=== PATIENT | female | born 1940 | race Caucasian/White ===

== ENCOUNTER → 2019-10-23 | Outpatient (CLI) | payer OTHER ==
[~2019-10-23] MED LIST: ADVAIR; ALBU90OI61 INH; AMLO10 PO; ASPI81CH PO; ASPIRIN; AZIT500 PO; CLIN150 PO; CLON.1 PO; CYAN1000 PO; CYCL10 PO; CYCLOBENZAPRINE; Cyclobenzaprine5 MG PO; DIPH12.5EL PO; DIPH50 PO; DOXY100 PO; DULO30 PO; ESCI10 PO; EVISTA; FISH1000; FLUSAL1005 INH; FLUSAL2505; GABA300 PO; GLUC500; HYDACE5325; HYDCHL25 PO; K-Dur10 MEQ; LEVSOD50 PO; LEXAPRO; LIPOZENE; LISI20 PO; LISINOPRIL; LORA10 PO; MELA3 PO; MELATONIN; MELO7.5; MELO7.5 PO; MELOXICAM; OMEG1CAP30; OMEGA 3; ONDA4ODT MM; OXYACE7.5T PO; OXYB5 PO; OXYC10TA19 PO; PRED10 PO; PRED20 PO; RALO60 PO; RANI150 PO; RANITIDINE; SERT100; SUPER B; TIOT18; TIOT18 IH; VENTOLIN; VITB100; Ventolin Soln3 ML INH
[2019-10-24 16:41] LABS: BASOPHILS ABSOLUTE AUTO 0.11 K/mm3 (0.00-0.23); BASOPHILS PERCENT AUTO 1 % (0-2); EOSINOPHILS ABSOLUTE AUTO 0.36 K/mm3 (0.00-0.68); EOSINOPHILS PERCENT AUTO 4 % (0-6); Hematocrit 47.7 % (33.0-51.0); IMMATURE GRAN ABSOLUTE AUTO 0.02 K/mm3 (0.00-0.10); IMMATURE GRAN PERCENT AUTO 0 % (0-1); LYMPHOCYTES ABSOLUTE AUTO 3.26 K/mm3 (0.84-5.20); LYMPHOCYTES PERCENT AUTO 35 % (21-46); MONOCYTES PERCENT AUTO 9 % (4-13); Mean Corpuscular HGB 30.4 pg (26.0-34.0); Mean Corpuscular HGB Conc 29.4 g/dL (31.5-36.5); Mean Corpuscular Volume 104 fL (80-100); Mean Platelet Volume 11.5 fL (9.1-12.4); NEUTROPHILS ABSOLUTE AUTO 4.82 K/mm3 (1.96-9.15); NEUTROPHILS PERCENT AUTO 52 % (41-73); Platelet Count 313 K/mm3 (150-400); RDW Coefficient Variation 14.7 % (11.7-14.2); RDW Standard Deviation 57.4 fL (35.1-46.3); White Blood Cell Count 9.37 K/mm3 (4.00-11.30)
== END | disposition home or self-care (01) ==
LOC: LAB SHORT 15:19 → LAB 15:19 → LAB SHORT 10-24 15:19
PROVIDERS: Nurse Practitioner Family
DX: E03.9 Hypothyroidism, unspecified (principal); I10 Essential (primary) hypertension
CPT/HCPCS: 84443; 85025

== ENCOUNTER 2020-08-08 22:49 | Inpatient (IN) | payer OTHER ==
[~2020-08-08] VITALS: Ht 154.9 cm; Wt 75.7 kg
[~2020-08-08 22:49] MED LIST changes: -ALBU90OI61 INH; -CLON.1 PO; -DULO30 PO; -GABA300 PO; -K-Dur10 MEQ; -LEVSOD50 PO; -MELO7.5 PO; -OXYACE7.5T PO; -RALO60 PO
[2020-08-08 23:34] LABS: BASOPHILS ABSOLUTE AUTO 0.07 K/mm3 (0.00-0.23); BASOPHILS PERCENT AUTO 0 % (0-2); EOSINOPHILS ABSOLUTE AUTO 0.27 K/mm3 (0.00-0.68); EOSINOPHILS PERCENT AUTO 2 % (0-6); Hematocrit 37.6 % (33.0-51.0); Hemoglobin 12.1 g/dL (11.5-16.0); IMMATURE GRAN ABSOLUTE AUTO 0.12 K/mm3 (0.00-0.10); IMMATURE GRAN PERCENT AUTO 1 % (0-1); LYMPHOCYTES ABSOLUTE AUTO 2.13 K/mm3 (0.84-5.20); LYMPHOCYTES PERCENT AUTO 12 % (21-46); MONOCYTES ABSOLUTE AUTO 1.68 K/mm3 (0.16-1.47); MONOCYTES PERCENT AUTO 10 % (4-13); Mean Corpuscular HGB 29.8 pg (26.0-34.0); Mean Corpuscular HGB Conc 32.2 g/dL (31.5-36.5); Mean Corpuscular Volume 93 fL (80-100); Mean Platelet Volume 10.8 fL (9.1-12.4); NEUTROPHILS ABSOLUTE AUTO 13.32 K/mm3 (1.96-9.15); NEUTROPHILS PERCENT AUTO 76 % (41-73); Platelet Count 295 K/mm3 (150-400); RDW Standard Deviation 47.9 fL (35.1-46.3); Red Blood Cell Count 4.06 M/mm3 (3.80-5.20); White Blood Cell Count 17.59 K/mm3 (4.00-11.30)
[2020-08-08 23:54] LABS: Albumin, Blood 2.7 g/dL (3.4-5.0); Albumin/Globulin Ratio 0.6 (0.8-1.8); Bilirubin, Total 0.6 mg/dL (0.1-1.0); Bun/Creatinine Ratio 13.3 (12.0-20.0); Creatinine, Blood 1.2 mg/dL (0.40-1.00); Globulin, Blood 4.8 g/dL (2.2-4.0); Potassium, Blood 3.7 mmol/L (3.5-5.5); Total Protein, Blood 7.5 g/dL (6.4-8.2); Troponin I 0.321 ng/mL (0.000-0.040)
[2020-08-09 11:11] LABS: BASOPHILS ABSOLUTE AUTO 0.04 K/mm3 (0.00-0.23); BASOPHILS PERCENT AUTO 0 % (0-2); EOSINOPHILS PERCENT AUTO 0 % (0-6); Hematocrit 38.3 % (33.0-51.0); Hemoglobin 12.5 g/dL (11.5-16.0); IMMATURE GRAN ABSOLUTE AUTO 0.14 K/mm3 (0.00-0.10); IMMATURE GRAN PERCENT AUTO 1 % (0-1); LYMPHOCYTES ABSOLUTE AUTO 0.81 K/mm3 (0.84-5.20); LYMPHOCYTES PERCENT AUTO 5 % (21-46); MONOCYTES ABSOLUTE AUTO 0.25 K/mm3 (0.16-1.47); MONOCYTES PERCENT AUTO 2 % (4-13); Mean Corpuscular HGB 29.7 pg (26.0-34.0); Mean Corpuscular HGB Conc 32.6 g/dL (31.5-36.5); Mean Corpuscular Volume 91 fL (80-100); Mean Platelet Volume 11.2 fL (9.1-12.4); NEUTROPHILS PERCENT AUTO 92 % (41-73); Platelet Count 331 K/mm3 (150-400); RDW Coefficient Variation 14.1 % (11.7-14.2); RDW Standard Deviation 47.2 fL (35.1-46.3); Red Blood Cell Count 4.21 M/mm3 (3.80-5.20); White Blood Cell Count 15.34 K/mm3 (4.00-11.30)
[2020-08-09 11:42] LABS: Albumin, Blood 2.8 g/dL (3.4-5.0); Albumin/Globulin Ratio 0.5 (0.8-1.8); Bilirubin, Total 0.4 mg/dL (0.1-1.0); Bun/Creatinine Ratio 14.5 (12.0-20.0); Creatinine, Blood 1.17 mg/dL (0.40-1.00); Globulin, Blood 5.2 g/dL (2.2-4.0)
[2020-08-09] MEDS ORDERED: ZANTAC-360 (FAM20 MG PO (14:13)
[2020-08-09] MEDS ORDERED: Percocet 10-321 EACH PO (14:13)
[2020-08-09] MEDS ORDERED: EUTHYROX50 MCG PO (14:14)
[2020-08-09] MEDS ORDERED: MONT10T PO (14:15)
[2020-08-09] MEDS ORDERED: DULOXETINE HCL40 MG PO (14:16)
[2020-08-09] MEDS ORDERED: K-Dur10 MEQ PO (14:16)
[2020-08-09] MEDS ORDERED: GABA300 PO (14:17)
[2020-08-09] MEDS ORDERED: CLON.1 PO (14:18)
[2020-08-09] MEDS ORDERED: RALO60 PO (14:18)
[2020-08-09] MEDS ORDERED: MELO7.5 PO (14:18)
[2020-08-09] MEDS ORDERED: ALBU90OI61 INH (14:19)
[2020-08-09] MEDS ORDERED: Aspir 8181 MG PO (15:52)
[2020-08-10 04:50] LABS: BASOPHILS ABSOLUTE AUTO 0.05 K/mm3 (0.00-0.23); BASOPHILS PERCENT AUTO 0 % (0-2); EOSINOPHILS PERCENT AUTO 0 % (0-6); Hematocrit 37.5 % (33.0-51.0); Hemoglobin 12.2 g/dL (11.5-16.0); IMMATURE GRAN ABSOLUTE AUTO 0.26 K/mm3 (0.00-0.10); IMMATURE GRAN PERCENT AUTO 1 % (0-1); LYMPHOCYTES ABSOLUTE AUTO 1.41 K/mm3 (0.84-5.20); LYMPHOCYTES PERCENT AUTO 7 % (21-46); MONOCYTES PERCENT AUTO 5 % (4-13); Mean Corpuscular HGB Conc 32.5 g/dL (31.5-36.5); Mean Corpuscular Volume 92 fL (80-100); Mean Platelet Volume 10.8 fL (9.1-12.4); NEUTROPHILS ABSOLUTE AUTO 17.41 K/mm3 (1.96-9.15); NEUTROPHILS PERCENT AUTO 86 % (41-73); Platelet Count 363 K/mm3 (150-400); RDW Coefficient Variation 14.1 % (11.7-14.2); RDW Standard Deviation 47.9 fL (35.1-46.3); Red Blood Cell Count 4.06 M/mm3 (3.80-5.20); White Blood Cell Count 20.23 K/mm3 (4.00-11.30)
[2020-08-10 04:55] LABS: Base Excess Venous 6.7 mmol/L; Bicarbonate Venous 29.6 mmol/L (24.0-30.0); PCO2 Venous 45.6 mmHg (38-42); PO2 Venous 79.7 mmHg (38-42); pH Blood Venous 7.44 (7.34-7.37)
--- NOTE | 2020-08-10 04:56 | NUR ---
SUMMARY: PT A/OX4, INDEPENDENT IN ROOM AND CALLS APPROPRIATELY FOR ASSIST. SHE BEGAN SHIFT ANXIOUS R/T CHRONIC BACK PAIN AND C/O PERSISTANT UPSET STOMACH AFTER RECIEVING ZOFRAN ON DAY SHIFT. STEPHANIE WAS ALERTED W/HOME MEDS RX'D. OXYCODONE AND FAMOTIDINE RECIEVED PRN FOR GOOD EFFECT. SHE REMAINS ON 1L O2 VIA NC W/WHEEZES HEARD UPON AUSCULTATION AND BX TX'S PROVIDED PER RT. PT USES FLUTTER WA W/MOIST HACKING PRODUCTIVE COUGH OBSERVED AND SPUTUM SPECIMEN OBTAINED/SENT. MILD SOB NOTED UPON EXERTION BUT PT RECOVERS AT REST. ABX AND IV STEROIDS BEING RECIEVED FOR TX OF PNM. SHE REMAINS NSR W/PAC'S AND PVC'S, HR 90'S. NO ACUTE CHANGES, VSS/AFEBRILE. WCTM AND REPORT TO DAY RN.
[2020-08-10 05:19] LABS: Bun/Creatinine Ratio 23.5 (12.0-20.0); Calcium, Blood 8.8 mg/dL (8.5-10.1); Creatinine, Blood 1.53 mg/dL (0.40-1.00); Potassium, Blood 3.3 mmol/L (3.5-5.5)
--- NOTE | 2020-08-10 13:21 | NUR ---
Patient is sitting up in bed and alert. Patient talks about her symptoms and the goals of care. She then shares about her [facility] [employer] liv[employer] and how much her spirituality means to her. She talks about the many deaths in her family some by murder, some by COVID-19 and some by heart attack but all within the last year or so. We discuss grief and healthy ways to deal with it. I provide therapeutic listening, pastoral executive assistant to general counsel, grief support and prayer. Patient responds well and shows signs of being comforted. I wll continue to remain available to patient and family.
--- NOTE | 2020-08-10 18:05 | NUR ---
PT IS FEELING MUCH BETTER TODAY, ON ROOM AIR, DOES HAVE THE OCCASSIONAL MOIST, PRODUCTIVE COUGH. SHE IS ANTICIPATING DISCHARGE TOMORROW. NO ACUTE CHANGES NOTED THIS SHIFT, WILL CONTINUE TO MONITOR AND REPORT TO ONCOMING RN.
--- NOTE | 2020-08-11 03:53 | NUR ---
SHIFT SUMMARY PATIENT HAD NO ACUTE CHANGES OBSERVED. AXOX 3 AND INDEPENDENT IN ROOM. PIV REMAINS INTACT. DIRECTOR OF SEARCH ENGINE MARKETING REPORTS SR W/PAC-PVC, BBB @ 76. ON 2L O2 NC NOC BASELINE. VSS/AFEBRILE. DENIES PAIN, SOB, AND N/V. CALL LIGHT IN REACH. BED IN LOWEST POSITION. WILL CONTINUE TO MONITOR UNTIL DAY SHIFT NURSE ASSUMES CARE.
[2020-08-11 04:32] LABS: BASOPHILS ABSOLUTE AUTO 0.06 K/mm3 (0.00-0.23); BASOPHILS PERCENT AUTO 0 % (0-2); EOSINOPHILS PERCENT AUTO 0 % (0-6); Hematocrit 36.5 % (33.0-51.0); Hemoglobin 11.8 g/dL (11.5-16.0); Mean Corpuscular HGB 29.9 pg (26.0-34.0); Mean Corpuscular HGB Conc 32.3 g/dL (31.5-36.5); Mean Corpuscular Volume 92 fL (80-100); Mean Platelet Volume 10.8 fL (9.1-12.4); Platelet Count 394 K/mm3 (150-400); RDW Coefficient Variation 13.8 % (11.7-14.2); RDW Standard Deviation 47.3 fL (35.1-46.3); Red Blood Cell Count 3.95 M/mm3 (3.80-5.20); White Blood Cell Count 17.54 K/mm3 (4.00-11.30)
[2020-08-11 04:35] LABS: IMMATURE GRAN ABSOLUTE AUTO 0.52 K/mm3 (0.00-0.10); IMMATURE GRAN PERCENT AUTO 3 % (0-1); LYMPHOCYTES ABSOLUTE AUTO 1.65 K/mm3 (0.84-5.20); LYMPHOCYTES PERCENT AUTO 9 % (21-46); MONOCYTES ABSOLUTE AUTO 0.75 K/mm3 (0.16-1.47); MONOCYTES PERCENT AUTO 4 % (4-13); NEUTROPHILS ABSOLUTE AUTO 14.56 K/mm3 (1.96-9.15); NEUTROPHILS PERCENT AUTO 83 % (41-73)
[2020-08-11 04:55] LABS: Bun/Creatinine Ratio 27.2 (12.0-20.0); Calcium, Blood 8.8 mg/dL (8.5-10.1); Creatinine, Blood 1.91 mg/dL (0.40-1.00); Potassium, Blood 4.3 mmol/L (3.5-5.5); Troponin I 0.146 ng/mL (0.000-0.040)
[2020-08-11] MEDS ORDERED: AZIT500 PO (09:36)
[2020-08-11] MEDS ORDERED: Acetaminophen325 M1 PO (09:36)
[2020-08-11] MEDS ORDERED: AZO CRANBERRY PO (09:37)
[2020-08-11] MEDS ORDERED: CEFPODOXIME PR100 MG PO (09:37)
[2020-08-11] MEDS ORDERED: ROBITUSSIN DM PO (09:40)
[2020-08-11] MEDS ORDERED: COMBIVENT RESPIM4 G1 INH (09:40)
[2020-08-11] MEDS ORDERED: FURO20 PO (09:40)
[2020-08-11] MEDS ORDERED: Prednisone10 MG PO (09:41)
--- NOTE | 2020-08-11 12:25 | NUR ---
PT TO DISCHARGE HOME. IV REMOVED, NO SS OF INFECTION NOTED AND PATIENT TOLERATED WELL. NURSE WENT OVER NEW MEDS WITH PT. FAXED TO PHARMACY OF CHOICE. PT TO FOLLOW UP WITH PCP AND PULMONARY CLINIC. PT DRESSED SELF AND WILL BE WC HER TO CAR TO BE TAKEN HOME. HH TO FOLLOW
== END 2020-08-11 14:27 | disposition home or self-care (01) | DRG 280 ==
LOC: ER 22:49 → ERHOLD 08-09 00:24 → MEDS 08-09 16:17
PROVIDERS: Emergency Medicine; Family Medicine; Internal Medicine; ADMIT Internal Medicine
DX: I11.0 Hypertensive heart disease with heart failure (principal); J18.9 Pneumonia, unspecified organism; I21.A1 Myocardial infarction type 2; J96.01 Acute respiratory failure with hypoxia; J44.1 Chronic obstructive pulmonary disease with (acute) exacerbation; J44.0 Chronic obstructive pulmonary disease with (acute) lower respiratory infection; I50.23 Acute on chronic systolic (congestive) heart failure; G89.29 Other chronic pain; M54.9 Dorsalgia, unspecified; F32.9 Major depressive disorder, single episode, unspecified; F17.210 Nicotine dependence, cigarettes, uncomplicated; K21.9 Gastro-esophageal reflux disease without esophagitis; F41.9 Anxiety disorder, unspecified; M19.90 Unspecified osteoarthritis, unspecified site; Z90.710 Acquired absence of both cervix and uterus; Z88.2 Allergy status to sulfonamides; Z88.0 Allergy status to penicillin; Z88.8 Allergy status to other drugs, medicaments and biological substances; Z98.890 Other specified postprocedural states; Z79.899 Other long term (current) drug therapy; Z79.51 Long term (current) use of inhaled steroids; Z99.81 Dependence on supplemental oxygen
CPT/HCPCS: 36415; 71045; 80048; 80053; 82803; 82947; 83880; 84145; 84484; 85025; 87070; 87205; 93005; 93010; 93306; 94640; 94667; 94760; 94761; 99285-25; A9270; J0456; J0696; J1650; J1940; J2405; J2930; J7050; J7512

== ENCOUNTER 2021-03-20 15:03 | Emergency (ER) | payer OTHER ==
[~2021-03-20] VITALS: Ht 154.9 cm; Wt 75.3 kg
[~2021-03-20 15:03] MED LIST changes: +ALBU90OI61 INH; +AZO CRANBERRY PO; +Acetaminophen325 M1 PO; +Aspir 8181 MG PO; +CEFPODOXIME PR100 MG PO; +CLON.1 PO; +COMBIVENT RESPIM4 G1 INH; +DULOXETINE HCL40 MG PO; +EUTHYROX50 MCG PO; +FAMO20 PO; +FURO20 PO; +GABA300 PO; +K-Dur10 MEQ PO; +MELO7.5 PO; +MONT10T PO; +Percocet 10-321 EACH PO; +Prednisone10 MG PO; +RALO60 PO; +ROBITUSSIN DM PO
[2021-03-20 15:38] LABS: BASOPHILS PERCENT AUTO 1 % (0-2); EOSINOPHILS ABSOLUTE AUTO 0.14 K/mm3 (0.00-0.68); EOSINOPHILS PERCENT AUTO 1 % (0-6); Hematocrit 41.3 % (33.0-51.0); Hemoglobin 13.1 g/dL (11.5-16.0); Mean Corpuscular HGB 29.9 pg (26.0-34.0); Mean Corpuscular HGB Conc 31.7 g/dL (31.5-36.5); Mean Corpuscular Volume 94 fL (80-100); Mean Platelet Volume 10.9 fL (9.1-12.4); Platelet Count 319 K/mm3 (150-400); RDW Coefficient Variation 15.2 % (11.7-14.2); Red Blood Cell Count 4.38 M/mm3 (3.80-5.20); White Blood Cell Count 12.86 K/mm3 (4.00-11.30)
[2021-03-20 15:39] LABS: IMMATURE GRAN ABSOLUTE AUTO 0.14 K/mm3 (0.00-0.10); IMMATURE GRAN PERCENT AUTO 1 % (0-1); LYMPHOCYTES ABSOLUTE AUTO 4.93 K/mm3 (0.84-5.20); LYMPHOCYTES PERCENT AUTO 38 % (21-46); MONOCYTES ABSOLUTE AUTO 1.07 K/mm3 (0.16-1.47); MONOCYTES PERCENT AUTO 8 % (4-13); NEUTROPHILS ABSOLUTE AUTO 6.48 K/mm3 (1.96-9.15); NEUTROPHILS PERCENT AUTO 50 % (41-73)
[2021-03-20 15:49] LABS: Albumin, Blood 3.2 g/dL (3.4-5.0); Albumin/Globulin Ratio 0.9 (0.8-1.8); Bilirubin, Total 0.5 mg/dL (0.1-1.0); Bun/Creatinine Ratio 19.4 (12.0-20.0); Calcium, Blood 8.5 mg/dL (8.5-10.1); Creatinine, Blood 1.24 mg/dL (0.40-1.00); Globulin, Blood 3.5 g/dL (2.2-4.0); Potassium, Blood 4.6 mmol/L (3.5-5.5); Total Protein, Blood 6.7 g/dL (6.4-8.2); Troponin I 0.038 ng/mL (0.000-0.040)
[2021-03-20] MEDS ORDERED: PEPCID40 MG PO (16:31)
[2021-03-21] MEDS ORDERED: SPIRIVA RESPIMAT4 G2 INH (14:52)
[2021-03-21] MEDS ORDERED: FLUTICASONE-SA1 EA10 INH (14:53)
[2021-03-21] MEDS ORDERED: OXYCODONE-ACET1 EAC2 PO (15:07)
[2021-03-21] MEDS ORDERED: DULOXETINE HCL60 M1 PO (15:07)
[2021-03-21] MEDS ORDERED: HYDCHL25 PO (15:09)
[2021-03-21] MEDS ORDERED: POTA8 PO (15:10)
[2021-03-21] MEDS ORDERED: POTA10T PO (15:11)
[2021-03-21] MEDS ORDERED: Tessalon200 MG PO (18:58)
[2021-03-22] MEDS ORDERED: NITR.4SL SL (09:54)
== END 2021-03-20 18:35 | disposition home or self-care (01) ==
LOC: ER 15:03
PROVIDERS: Emergency Medicine
DX: R07.9 Chest pain, unspecified (principal); J44.9 Chronic obstructive pulmonary disease, unspecified; I10 Essential (primary) hypertension; M19.90 Unspecified osteoarthritis, unspecified site; F17.210 Nicotine dependence, cigarettes, uncomplicated; Z79.2 Long term (current) use of antibiotics; Z79.899 Other long term (current) drug therapy
CPT/HCPCS: 36415; 71045; 80053; 83690; 83880; 84484; 85025; 93005; 93010; 96374; 99285-25; A9270; J2405

== ENCOUNTER → 2021-05-20 | Outpatient (CLI) | payer OTHER ==
[~2021-05-20] MED LIST changes: +DULOXETINE HCL60 M1 PO; +FLUTICASONE-SA1 EA10 INH; +NITR.4SL SL; +OXYCODONE-ACET1 EAC2 PO; +PEPCID40 MG PO; +POTA10T PO; +POTA8 PO; +SPIRIVA RESPIMAT4 G2 INH; +Tessalon200 MG PO
[2021-05-20 18:58] LABS: Protein, Urine Quantitative 9.5 mg/dL (0.0-11.9)
[2021-05-20 19:00] LABS: Microalbumin, Urine Quant. <5.000 mg/L (0.000-20.000)
== END ==
LOC: LAB SHORT 16:57
PROVIDERS: Internal Medicine Nephrology
DX: N18.30 Chronic kidney disease, stage 3 unspecified (principal); D63.1 Anemia in chronic kidney disease; E83.51 Hypocalcemia; N25.81 Secondary hyperparathyroidism of renal origin; E78.00 Pure hypercholesterolemia, unspecified; R76.9 Abnormal immunological finding in serum, unspecified; R94.5 Abnormal results of liver function studies
CPT/HCPCS: 81050; 82043; 82570; 84156

== ENCOUNTER → 2021-06-07 | Outpatient (CLI) | payer OTHER | END | disposition home or self-care (01) | LOC: LAB SHORT 12:00 | DX: N30.00 Acute cystitis without hematuria (principal) | CPT/HCPCS: 87086 ==

== ENCOUNTER → 2022-11-29 | Outpatient (CLI) | payer MEDICARE, OTHER ==
[2022-11-29 17:44] LABS: BASOPHILS PERCENT AUTO 1 % (0-2); EOSINOPHILS ABSOLUTE AUTO 0.36 K/mm3 (0.00-0.68); EOSINOPHILS PERCENT AUTO 5 % (0-6); Hematocrit 39.2 % (33.0-51.0); Hemoglobin 12.3 g/dL (11.5-16.0); IMMATURE GRAN ABSOLUTE AUTO 0.03 K/mm3 (0.00-0.10); IMMATURE GRAN PERCENT AUTO 0 % (0-1); LYMPHOCYTES PERCENT AUTO 30 % (21-46); MONOCYTES ABSOLUTE AUTO 0.65 K/mm3 (0.16-1.47); MONOCYTES PERCENT AUTO 8 % (4-13); Mean Corpuscular HGB 28.6 pg (26.0-34.0); Mean Corpuscular HGB Conc 31.4 g/dL (31.5-36.5); Mean Corpuscular Volume 91 fL (80-100); Mean Platelet Volume 10.8 fL (9.1-12.4); NEUTROPHILS ABSOLUTE AUTO 4.48 K/mm3 (1.96-9.15); NEUTROPHILS PERCENT AUTO 56 % (41-73); Platelet Count 318 K/mm3 (150-400); RDW Coefficient Variation 15.8 % (11.7-14.2); RDW Standard Deviation 52.5 fL (35.1-46.3); White Blood Cell Count 8.02 K/mm3 (4.00-11.30)
[2022-11-29 17:51] LABS: Glucose, Blood 91 mg/dL (70-99)
== END ==
LOC: LAB SHORT 17:38 → LAB EV 17:38
PROVIDERS: Family Medicine
DX: R20.2 Paresthesia of skin (principal)
CPT/HCPCS: 82607; 82962; 85025

== ENCOUNTER 2023-01-08 18:14 | Emergency (ER) | payer MEDICARE, OTHER ==
[~2023-01-08] VITALS: Ht 154.9 cm; Wt 72.6 kg
[2023-01-08 18:31] VITALS: BP 135/106
== END 2023-01-08 19:38 | disposition home or self-care (01) ==
LOC: ER 18:14
DX: T40.2X1A Poisoning by other opioids, accidental (unintentional), initial encounter (principal); R41.82 Altered mental status, unspecified; G89.29 Other chronic pain; M54.9 Dorsalgia, unspecified; I10 Essential (primary) hypertension; J44.9 Chronic obstructive pulmonary disease, unspecified; F17.210 Nicotine dependence, cigarettes, uncomplicated; Z88.0 Allergy status to penicillin; Z88.2 Allergy status to sulfonamides; Z88.8 Allergy status to other drugs, medicaments and biological substances; Z79.82 Long term (current) use of aspirin; Z79.899 Other long term (current) drug therapy; Z79.890 Hormone replacement therapy
CPT/HCPCS: 99284-25

== ENCOUNTER → 2024-01-09 | Outpatient (CLI) | payer OTHER | LOC: LAB 18:36 → LAB SHORT 18:36 | DX: R30.0 Dysuria (principal) | CPT/HCPCS: 87086 ==

== ENCOUNTER 2024-01-23 18:30 | Emergency (ER) | payer OTHER ==
[~2024-01-23] VITALS: Ht 154.9 cm; Wt 69.8 kg
[2024-01-23 19:08] LABS: BASOPHILS PERCENT AUTO 1 % (0-2); EOSINOPHILS ABSOLUTE AUTO 0.61 K/mm3 (0.00-0.68); EOSINOPHILS PERCENT AUTO 6 % (0-6); Hematocrit 39.6 % (33.0-51.0); Hemoglobin 12.1 g/dL (11.5-16.0); IMMATURE GRAN ABSOLUTE AUTO 0.03 K/mm3 (0.00-0.10); IMMATURE GRAN PERCENT AUTO 0 % (0-1); LYMPHOCYTES ABSOLUTE AUTO 2.54 K/mm3 (0.84-5.20); LYMPHOCYTES PERCENT AUTO 26 % (21-46); MONOCYTES ABSOLUTE AUTO 0.85 K/mm3 (0.16-1.47); MONOCYTES PERCENT AUTO 9 % (4-13); Mean Corpuscular HGB 26.7 pg (26.0-34.0); Mean Corpuscular HGB Conc 30.6 g/dL (31.5-36.5); Mean Corpuscular Volume 87 fL (80-100); Mean Platelet Volume 11.8 fL (9.1-12.4); NEUTROPHILS ABSOLUTE AUTO 5.53 K/mm3 (1.96-9.15); NEUTROPHILS PERCENT AUTO 57 % (41-73); Platelet Count 219 K/mm3 (150-400); RDW Coefficient Variation 17.2 % (11.7-14.2); RDW Standard Deviation 54.3 fL (35.1-46.3); Red Blood Cell Count 4.53 M/mm3 (3.80-5.20); White Blood Cell Count 9.66 K/mm3 (4.00-11.30)
[2024-01-23 19:25] LABS: Albumin, Blood 2.9 g/dL (3.4-5.0); Albumin/Globulin Ratio 0.6 (0.8-1.8); Bilirubin, Total 0.9 mg/dL (0.1-1.0); Calcium, Blood 9.2 mg/dL (8.5-10.1); Creatinine, Blood 1.4 mg/dL (0.40-1.00); Globulin, Blood 4.6 g/dL (2.2-4.0); Potassium, Blood 4.1 mmol/L (3.5-5.5); Total Protein, Blood 7.5 g/dL (6.4-8.2)
[2024-01-23] MEDS ORDERED: Ondansetron HCl 2 MG / ML 2ML Vial IV ONE (20:35)
[2024-01-23 20:45] VITALS: BP 137/94
[2024-01-23 22:28] LABS: Source, Urine Clean Catch
[2024-01-23 22:36] LABS: Bilirubin, Urine Neg (Neg); Blood, Urine Neg (Neg); Glucose Qualitative, Urine Neg (Neg); Ketones, Urine 1+ (Neg); Leukocyte Esterase, Urine Neg (Neg); Nitrite, Urine Neg (Neg); Protein, Urine 2+ (Neg); Urobilinogen, Urine NORM (Normal)
[2024-01-23 22:56] LABS: Appearance, Urine Clear (Clear); Color, Urine Yellow (P-Yellow)
[2024-01-23 22:57] LABS: Bacteria Few /hpf; Hyaline Casts 0-2 /lpf (0-2); Red Blood Cells, Urine 0-2 /hpf (0-2); Squamous Epithelial Cells Few /hpf (Few); White Blood Cells, Urine 0-2 /hpf (0-5)
== END 2024-01-23 23:40 | disposition home or self-care (01) ==
LOC: ER 18:30
PROVIDERS: Emergency Medicine
DX: R44.3 Hallucinations, unspecified (principal); M53.3 Sacrococcygeal disorders, not elsewhere classified; Z53.29 Procedure and treatment not carried out because of patient's decision for other reasons
CPT/HCPCS: 51702; 51798; 80053; 81001; 85025; 96374; 99285-25; J2405

== ENCOUNTER 2025-02-04 18:00 | Inpatient (IN) | payer OTHER ==
[~2025-02-04] VITALS: Ht 154.9 cm; Wt 58.4 kg
[~2025-02-04 18:00] MED LIST changes: +DULO60 PO; -DULOXETINE HCL60 M1 PO; +FAMO10 PO; -FAMO20 PO
[2025-02-04 19:17] LABS: Alanine Aminotransfer (ALT/SGP 21.0 U/L (12-78); Albumin, Blood 3.4 g/dL (3.4-5.0); Albumin/Globulin Ratio 0.9 (0.8-1.8); Anion Gap 12.0 mmol/L (3-11); Aspartate Aminotrans (AST/SGOT 28.0 U/L (12-37); Bilirubin, Total 0.7 mg/dL (0.1-1.0); Blood Urea Nitrogen 20.0 mg/dL (8-24); CO2, Blood 24.0 mmol/L (21-32); Calcium, Blood 8.8 mg/dL (8.5-10.1); Chloride, Blood 101.0 mmol/L (98-108); Creatinine, Blood 1.37 mg/dL (0.40-1.00); Globulin, Blood 3.6 g/dL (2.2-4.0); Glucose, Blood 92.0 mg/dL (70-99); Potassium, Blood 4.2 mmol/L (3.5-5.5); Sodium, Blood 133.0 mmol/L (136-145); Total Protein, Blood 7.0 g/dL (6.4-8.2)
[2025-02-04 19:52] LABS: BASOPHILS ABSOLUTE AUTO 0.05 K/mm3 (0.00-0.23); BASOPHILS PERCENT AUTO 0 % (0-2); EOSINOPHILS ABSOLUTE AUTO 0.02 K/mm3 (0.00-0.68); EOSINOPHILS PERCENT AUTO 0 % (0-6); Hematocrit 33.2 % (33.0-51.0); Hemoglobin 10.5 g/dL (11.5-16.0); IMMATURE GRAN ABSOLUTE AUTO 0.12 K/mm3 (0.00-0.10); IMMATURE GRAN PERCENT AUTO 1 % (0-1); LYMPHOCYTES ABSOLUTE AUTO 0.87 K/mm3 (0.84-5.20); LYMPHOCYTES PERCENT AUTO 4 % (21-46); MONOCYTES ABSOLUTE AUTO 1.24 K/mm3 (0.16-1.47); MONOCYTES PERCENT AUTO 6 % (4-13); Mean Corpuscular HGB Conc 31.6 g/dL (31.5-36.5); Mean Corpuscular Volume 83 fL (80-100); NEUTROPHILS ABSOLUTE AUTO 17.41 K/mm3 (1.96-9.15); NEUTROPHILS PERCENT AUTO 88 % (41-73); NRBC ABSOLUTE 0.00 K/mm3 (0.00-0.02); NRBC Auto 0.0 /100 WBC (0.0-0.2); Platelet Count 304 K/mm3 (150-400); RDW Coefficient Variation 17.3 % (11.7-14.2); RDW Standard Deviation 52.0 fL (35.1-46.3)
[2025-02-04] MEDS ORDERED: Heparin Sodium 5000 Units/ML 1ML MDV IV ONE ×2 (21:50→22:35)
[2025-02-04] MEDS ORDERED: Morphine Sulfate 4 MG/1 ML Injection IV ONE (22:10)
[2025-02-04 22:23] LABS: Anti-Xa UFH, PHA Monitoring <0.10 IU/mL; Prothrombin Time Results 12.0 Sec (9.7-11.5)
[2025-02-04] MEDS ORDERED: Dose Adjust by Pharmacy XX STA (22:32)
[2025-02-04] MEDS ORDERED: Heparin Sodium,Porcine/0.5 NS 500 ML IV SCH (22:35)
[2025-02-04] MEDS ORDERED: Ondansetron HCl 2 MG / ML 2ML Vial IV ONE (22:45)
[2025-02-04 23:31] LABS: Influenza A, PCR NEGATIVE (NEGATIVE); Influenza B, PCR NEGATIVE (NEGATIVE); Resp Syncytial Virus, PCR NEGATIVE (NEGATIVE); SARS-Cov-2 (COVID-19) PCR, MMC NEGATIVE (NEGATIVE)
[2025-02-04] MEDS ORDERED: OxyCODONE 10/Acetamin 325 TABLET PO PRN (23:50)
[2025-02-05] VITALS (7 sets, daily range): BP systolic 101–145; BP diastolic 51–85
[2025-02-05] MEDS ORDERED: FLU VACC TS2025(65UP)/MF59C/PF 45 MCG/0.5 ML SYRINGE IM SCH (00:05)
[2025-02-05] MEDS ORDERED: CefTRIAXone Sodium 2,000 MG in NS 100 ML IV SCH (00:38)
[2025-02-05] MEDS ORDERED: Albuterol 2.5 MG/3 ML VIAL INH PRN (00:50)
[2025-02-05] MEDS ORDERED: Tiotropium Bromide 2.5 MCG/ACT MIST INHAL (10 ACT/4 GM) INH SCH ×2 (00:50→07:05)
[2025-02-05] MEDS ORDERED: Albuterol 2.5 MG/3 ML VIAL INH SCH (00:50)
[2025-02-05] MEDS ORDERED: Formoterol/Mometasone MDI 5/200 mcg 13 GM INH SCH ×2 (00:50→07:05)
[2025-02-05] MEDS ORDERED: NS 250 ML IV PRN (01:15)
[2025-02-05 05:09] LABS: BASOPHILS ABSOLUTE AUTO 0.04 K/mm3 (0.00-0.23); BASOPHILS PERCENT AUTO 0 % (0-2); EOSINOPHILS ABSOLUTE AUTO 0.02 K/mm3 (0.00-0.68); EOSINOPHILS PERCENT AUTO 0 % (0-6); Hematocrit 31.4 % (33.0-51.0); Hemoglobin 9.6 g/dL (11.5-16.0); IMMATURE GRAN ABSOLUTE AUTO 0.11 K/mm3 (0.00-0.10); IMMATURE GRAN PERCENT AUTO 1 % (0-1); LYMPHOCYTES ABSOLUTE AUTO 1.16 K/mm3 (0.84-5.20); LYMPHOCYTES PERCENT AUTO 6 % (21-46); MONOCYTES ABSOLUTE AUTO 1.38 K/mm3 (0.16-1.47); MONOCYTES PERCENT AUTO 7 % (4-13); Mean Corpuscular HGB Conc 30.6 g/dL (31.5-36.5); Mean Corpuscular Volume 85 fL (80-100); NEUTROPHILS ABSOLUTE AUTO 16.07 K/mm3 (1.96-9.15); NEUTROPHILS PERCENT AUTO 86 % (41-73); NRBC ABSOLUTE 0.00 K/mm3 (0.00-0.02); NRBC Auto 0.0 /100 WBC (0.0-0.2); Platelet Count 299 K/mm3 (150-400); RDW Coefficient Variation 17.3 % (11.7-14.2); RDW Standard Deviation 53.4 fL (35.1-46.3)
[2025-02-05 05:40] LABS: Alanine Aminotransfer (ALT/SGP 20.0 U/L (12-78); Albumin, Blood 3.0 g/dL (3.4-5.0); Albumin/Globulin Ratio 0.8 (0.8-1.8); Anion Gap 11.0 mmol/L (3-11); Aspartate Aminotrans (AST/SGOT 25.0 U/L (12-37); Bilirubin, Total 0.4 mg/dL (0.1-1.0); Blood Urea Nitrogen 19.0 mg/dL (8-24); CO2, Blood 25.0 mmol/L (21-32); Calcium, Blood 8.2 mg/dL (8.5-10.1); Chloride, Blood 102.0 mmol/L (98-108); Creatinine, Blood 1.31 mg/dL (0.40-1.00); Globulin, Blood 3.6 g/dL (2.2-4.0); Glucose, Blood 106.0 mg/dL (70-99); Magnesium, Blood 2.0 mg/dL (1.6-2.4); Potassium, Blood 3.5 mmol/L (3.5-5.5); Sodium, Blood 134.0 mmol/L (136-145); Total Protein, Blood 6.6 g/dL (6.4-8.2)
[2025-02-05] MEDS ORDERED: Clarify Drug Order XX ONE (06:05)
[2025-02-05] MEDS ORDERED: Albuterol HFA200 ACT/6.7 GM INH INH PRN (07:00)
--- NOTE | 2025-02-05 07:35 | NUR ---
SHIFT SUMMARY: PT ARRIVES TO PCU 1 FROM THE ER VIA GURNEY AROUND 0030. PT TRANSFERRED TO HOSPITAL BED, X1 ASSIST. PT ORIENTED TO ROOM, STAFF AND CALL LIGHT. PT IS A&OX4, FORGETFUL AT TIMES, BUT PLEASANT AND COOPERATIVE WITH CARE. VSS ON 4L OXYGEN VIA NC, SATTING 88-92%. MONITOR SHOWS SINUS RHYTHM WITH BBB IN THE 70'S. PT DOES HAVE A PRODUCTIVE COUGH, WITH THICK PALE YELLOW PHLEGM. SHE C/O 8/10 BACK PAIN THAT RADIATES DOWN HER RIGHT LEG, MEDICATED WITH PRN 10MG PO PERCOCET. HEPARIN GTT INFUSING PER ORDER. PT IS A DAILY 1 PPD SMOKER, WHO IS NOT INTERESTED IN CESSATION. NICOTINE PATCH PLACED TO RUE. PT REMAINS NPO FOR A POSSIBLE ANGIO TODAY. SBA TO BSC. VOIDING ADEQUATE AMOUNTS OF CLEAR, YELLOW URINE. PT IS MOSTLY CONTINENT, BUT DOES HAVE URGENCY AND SOME INCONTINENCE, PULL-UP IN PLACE AND CHANGED NEEDED. NO BM THIS SHIFT. BED IN LOWEST POSITION, CALL LIGHT WITHIN REACH. BED ALARM SET FOR PT'S SAFETY.
[2025-02-05] MEDS ORDERED: Lactobacil 2-S.Thermo-Bifido 1 1 Cap PO SCH (09:00)
[2025-02-05] MEDS ORDERED: DULoxetine HCL 60 MG Capsule DR PO SCH (09:00)
[2025-02-05] MEDS ORDERED: Potassium Chloride 10 Meq Tablet SA PO SCH (09:00)
[2025-02-05] MEDS ORDERED: Dose Adjust by Pharmacy XX STA (11:34)
[2025-02-05] MEDS ORDERED: Heparin Sodium 5000 Units/ML 1ML MDV IV ONE (11:35)
--- NOTE | 2025-02-05 13:19 | NUR ---
Upon receiving a referral for spiritual care, I visited the patient. She tells me about her strong belief in God and that he answers prayers. She then explains about the many times she has prayed and seen and experienced some amazing answers. I provided therapeutic listening, a calming presence and a blessing. The patient responded well and showed signs of greater peace. I will cotninue to remain available to the patient and family.
--- NOTE | 2025-02-05 16:32 | NUR ---
SHIFT SUMMARY: RECEIVED BEDSIDE SHIFT REPORT FROM EDUCATIONAL PSYCHOLOGY TEACHER NURSE AND TOOK OVER CARE OF THIS PATIENT. A&OX4, PLEASANT AND COOPERATIVE WITH CARE. OK'D PT TO EAT DUE TO NO PROCEDURE TODAY. DENIES CHEST PAIN, NORMAL SINUS RHYTHM, RATE IN THE 90s. X1 ASSIST TO BSC FOR HELP WITH MANAGING IVS, AMBULATED WITH A STEADY GAIT. PT HAS A PRODUCTIVE COUGH, WITH THICK YELLOW/CLEAR SPUTUM. VSS, CALL LIGHT WITHIN REACH, BED ALARM SET, BED IN LOWEST POSTION.
[2025-02-05] MEDS ORDERED: CefTRIAXone Sodium 1,000 MG in NS 100 ML IV SCH (21:00)
[2025-02-06 03:23] VITALS: BP 106/91
[2025-02-06 05:02] LABS: BASOPHILS ABSOLUTE AUTO 0.03 K/mm3 (0.00-0.23); BASOPHILS PERCENT AUTO 0 % (0-2); EOSINOPHILS ABSOLUTE AUTO 0.00 K/mm3 (0.00-0.68); EOSINOPHILS PERCENT AUTO 0 % (0-6); Hematocrit 30.0 % (33.0-51.0); Hemoglobin 9.3 g/dL (11.5-16.0); IMMATURE GRAN ABSOLUTE AUTO 0.09 K/mm3 (0.00-0.10); IMMATURE GRAN PERCENT AUTO 1 % (0-1); LYMPHOCYTES ABSOLUTE AUTO 0.51 K/mm3 (0.84-5.20); LYMPHOCYTES PERCENT AUTO 3 % (21-46); MONOCYTES ABSOLUTE AUTO 0.40 K/mm3 (0.16-1.47); MONOCYTES PERCENT AUTO 2 % (4-13); Mean Corpuscular HGB Conc 31.0 g/dL (31.5-36.5); Mean Corpuscular Volume 84 fL (80-100); NEUTROPHILS ABSOLUTE AUTO 16.25 K/mm3 (1.96-9.15); NEUTROPHILS PERCENT AUTO 94 % (41-73); NRBC ABSOLUTE 0.00 K/mm3 (0.00-0.02); NRBC Auto 0.0 /100 WBC (0.0-0.2); Platelet Count 321 K/mm3 (150-400); RDW Coefficient Variation 17.2 % (11.7-14.2); RDW Standard Deviation 53.4 fL (35.1-46.3)
[2025-02-06 05:31] LABS: Alanine Aminotransfer (ALT/SGP 18.0 U/L (12-78); Albumin, Blood 2.7 g/dL (3.4-5.0); Albumin/Globulin Ratio 0.6 (0.8-1.8); Anion Gap 9.0 mmol/L (3-11); Aspartate Aminotrans (AST/SGOT 20.0 U/L (12-37); Bilirubin, Total 0.3 mg/dL (0.1-1.0); Blood Urea Nitrogen 25.0 mg/dL (8-24); CO2, Blood 28.0 mmol/L (21-32); Calcium, Blood 8.8 mg/dL (8.5-10.1); Chloride, Blood 105.0 mmol/L (98-108); Creatinine, Blood 1.41 mg/dL (0.40-1.00); Globulin, Blood 4.3 g/dL (2.2-4.0); Glucose, Blood 147.0 mg/dL (70-99); Potassium, Blood 3.4 mmol/L (3.5-5.5); Sodium, Blood 139.0 mmol/L (136-145); Total Protein, Blood 7.0 g/dL (6.4-8.2)
--- NOTE | 2025-02-06 05:48 | NUR ---
SHIFT SUMMARY: PT WAS ASLEEP MOST OF THE ENTIRE SHIFT. WITH O2 VIA NASAL CANNULA AT 1.5 LPM. NO COMPLAINTS OF CHEST PAIN OR SHORTNESS OF BREATH. PT WAS ALSO COOPERATIVE WHEN SHE WENT UP AND USED THE TOILET. THIS RN REMINDED PT TO USE THE CALL LIGHT. BED ALARMS WERE ALSO ACTIVATED. PT ASKED TO SIT AT THE SIDE OF THE BED. REMINDED NOT TO GET UP ON HER OWN AND TO USE THE CALL LIGHT. PT ALSO EXPRESSED HER INTENT TO SPEAK WITH THE COMPLIANCE LEAD THIS MORNING. WILL ENDORSE TO NEXT NURSE ON DUTY.
[2025-02-06] MEDS ORDERED: Polyethylene Glycol 3350 17 gm PO PRN (06:40)
[2025-02-06 07:21] VITALS: BP 125/74
[2025-02-06 11:40] VITALS: BP 118/76
--- NOTE | 2025-02-06 13:33 | NUR ---
Spiritual care referral- Rox (pt) is awake and sitting in a chair. Pt is alert and conversational and immediately asks for prayer for an upcoming heart procedure. Provided prayer and pt thanked me. Examined sources of meaning in pt's life. Provided compassionate and reflective listening to pt. Pt takes pride in her strong work ethic and her capable son that lives with her. She mourns the recent of her dog and hopes to get another one this season, but is also resolved if she doesn't. "If the lord says no right now, then it's no." Pt grew up in restorationism and has a strong livan foundation and has relied upon god during difficult times, such as numerous deaths in her family. Despite this, she is positive and remarks that "there are always people willing to help out." Pt thanked me for the visit and I expressed ongoing availibilty through the afternoon.
[2025-02-06] MEDS ORDERED: Aminophylline 250MG / 10ML 10 ML Vial ONE (14:55)
[2025-02-06 16:13] VITALS: BP 139/70
--- NOTE | 2025-02-06 17:32 | NUR ---
EOS: PATIENT REMAINS PLEASANT COOPERATIVE A/O X 3-4, ABLE TO MAKE NEEDS KNOWN, DENIES INCREASED SOB, BUT OBVIOUS BASELINE APPEARS SOB AND DYSPNIC WITH EXERTION. EXERTIONAL CHEST PAIN NOTED X 1 RESOLVED WITH REST. HR HAS BEEN INCREASING SINCE START OF STRESS TEST FROM 90-100 TO 100-120'S CURRENTLY IN THE 120-130. ADDITIONALLY, ECTOPY HAS BEEN INCREASED WELL. CALL TO PROVIDER NO NEW ORDERS NOTED.
[2025-02-06 19:33] VITALS: BP 113/75
[2025-02-07 03:43] VITALS: BP 143/66
[2025-02-07 04:01] LABS: BASOPHILS ABSOLUTE AUTO 0.03 K/mm3 (0.00-0.23); BASOPHILS PERCENT AUTO 0 % (0-2); EOSINOPHILS ABSOLUTE AUTO 0.00 K/mm3 (0.00-0.68); EOSINOPHILS PERCENT AUTO 0 % (0-6); Hematocrit 29.3 % (33.0-51.0); Hemoglobin 8.8 g/dL (11.5-16.0); IMMATURE GRAN ABSOLUTE AUTO 0.13 K/mm3 (0.00-0.10); IMMATURE GRAN PERCENT AUTO 1 % (0-1); LYMPHOCYTES ABSOLUTE AUTO 0.57 K/mm3 (0.84-5.20); LYMPHOCYTES PERCENT AUTO 3 % (21-46); MONOCYTES ABSOLUTE AUTO 0.54 K/mm3 (0.16-1.47); MONOCYTES PERCENT AUTO 3 % (4-13); Mean Corpuscular HGB Conc 30.0 g/dL (31.5-36.5); Mean Corpuscular Volume 85 fL (80-100); NEUTROPHILS ABSOLUTE AUTO 18.23 K/mm3 (1.96-9.15); NEUTROPHILS PERCENT AUTO 93 % (41-73); NRBC ABSOLUTE 0.02 K/mm3 (0.00-0.02); NRBC Auto 0.1 /100 WBC (0.0-0.2); Platelet Count 368 K/mm3 (150-400); RDW Coefficient Variation 17.4 % (11.7-14.2); RDW Standard Deviation 53.5 fL (35.1-46.3)
[2025-02-07 04:44] LABS: Alanine Aminotransfer (ALT/SGP 26.0 U/L (12-78); Albumin, Blood 2.8 g/dL (3.4-5.0); Albumin/Globulin Ratio 0.8 (0.8-1.8); Anion Gap 7.0 mmol/L (3-11); Aspartate Aminotrans (AST/SGOT 31.0 U/L (12-37); Bilirubin, Total 0.3 mg/dL (0.1-1.0); Blood Urea Nitrogen 33.0 mg/dL (8-24); CO2, Blood 28.0 mmol/L (21-32); Calcium, Blood 8.7 mg/dL (8.5-10.1); Chloride, Blood 109.0 mmol/L (98-108); Creatinine, Blood 1.52 mg/dL (0.40-1.00); Globulin, Blood 3.7 g/dL (2.2-4.0); Glucose, Blood 134.0 mg/dL (70-99); Magnesium, Blood 2.1 mg/dL (1.6-2.4); Potassium, Blood 3.3 mmol/L (3.5-5.5); Sodium, Blood 141.0 mmol/L (136-145); Total Protein, Blood 6.5 g/dL (6.4-8.2)
--- NOTE | 2025-02-07 05:26 | NUR ---
SHIFT SUMMARY PT A&O X4, ABLE TO MAKE NEEDS KNOWN, ANSWERS QUESTIONS APPROPRIATELY. VSS, AFEBRILE, SPO2 >95% ON 2-6L NC. SHE DENIES CP/ PRESSURE OR SOB. TELE SHOWS SR [address] ELEVATION. SHE DID HAVE ONE 6 BEAT RUN OF VTACH THIS SHIFT AT 2057. PT WAS ABLE TO AMBULATE TO THE RESTROOM WITH SBA. PT HAD SMALL BM THIS SHIFT. BED IN LOWEST POSITION, CALL LIGHT IN REACH, BREATHING IS EVEN AND UNLABORED.
[2025-02-07 07:31] VITALS: BP 135/86
--- NOTE | 2025-02-07 09:43 | NUR ---
ASSUMED CARE PLEASENT PT WITH NO COMPLAINTS, PT HOPING TO GO HOME TODAY. UP IN CHAIR WATCHING TV. NO NEEDS AT THIS POINT CALL LIGHT WITHIN REACH.
[2025-02-07] MEDS ORDERED: CLOP75 PO (11:20)
[2025-02-07] MEDS ORDERED: CEFP200 PO (11:20)
[2025-02-07] MEDS ORDERED: JARDIANCE10 MG PO (11:21)
[2025-02-07] MEDS ORDERED: LOSA25 PO (11:21)
[2025-02-07] MEDS ORDERED: PRED20 PO (11:21)
[2025-02-07] MEDS ORDERED: METO25ER PO (11:22)
--- NOTE | 2025-02-07 14:10 | NUR ---
HOME O2 AFTER RT ASSESSMENT PT WILL NOT BE NEEDING HOME O2. PT HAS AVAILABLE O2 AT HOME FOR THE EVENING. DISCHARGE INSTRUCTIONS WERE GIVEN, IV DCED. PT TAKE OUT VIA WHEELCHAIR.
[2025-02-08] MEDS ORDERED: DULoxetine HCL 60 MG Capsule DR PO SCH (09:00)
== END 2025-02-07 13:52 | disposition home or self-care (01) | DRG 280 ==
LOC: ER 18:00 → PCU 22:25 → ERHOLD 22:25 → PCU 02-05 00:26
PROVIDERS: Student in an Organized Health Care Education/Training Program; ADMIT Internal Medicine
DX: I13.0 Hypertensive heart and chronic kidney disease with heart failure and stage 1 through stage 4 chronic kidney disease, or unspecified chronic kidney disease (principal); I50.23 Acute on chronic systolic (congestive) heart failure; I21.A1 Myocardial infarction type 2; J96.21 Acute and chronic respiratory failure with hypoxia; J18.0 Bronchopneumonia, unspecified organism; J44.1 Chronic obstructive pulmonary disease with (acute) exacerbation; J44.0 Chronic obstructive pulmonary disease with (acute) lower respiratory infection; G89.29 Other chronic pain; M19.90 Unspecified osteoarthritis, unspecified site; Z66 Do not resuscitate; F32.A Depression, unspecified; F17.210 Nicotine dependence, cigarettes, uncomplicated; N18.30 Chronic kidney disease, stage 3 unspecified; I44.7 Left bundle-branch block, unspecified; E03.9 Hypothyroidism, unspecified; D63.1 Anemia in chronic kidney disease; F10.10 Alcohol abuse, uncomplicated; F41.1 Generalized anxiety disorder; K59.00 Constipation, unspecified; R59.1 Generalized enlarged lymph nodes; Z99.81 Dependence on supplemental oxygen; Z88.2 Allergy status to sulfonamides; Z79.82 Long term (current) use of aspirin; Z79.890 Hormone replacement therapy; Z79.891 Long term (current) use of opiate analgesic; Z79.899 Other long term (current) drug therapy; Z79.51 Long term (current) use of inhaled steroids; Z90.710 Acquired absence of both cervix and uterus; Z98.890 Other specified postprocedural states; Z87.19 Personal history of other diseases of the digestive system; Z88.8 Allergy status to other drugs, medicaments and biological substances; Z88.0 Allergy status to penicillin; Z87.892 Personal history of anaphylaxis
CPT/HCPCS: 36415; 71046; 71275; 78452; 80053; 83605; 83690; 83735; 83880; 84145; 84484; 85025; 85520; 85610; 85730; 87040; 87070; 87186; 87205; 87637; 92610; 93005; 93010; 93017; 93308; 93321; 94640; 94664; 94761; 94762; 96374-59; 97110; 97116; 97162; 97165; 97530; 97535; 99285-25; A9270; A9500; J0280; J0456; J0696; J1644; J1938; J2270; J2785; J2919; J3480; J7050; Q9967